=== PATIENT | female | born 1975 | race Caucasian/White ===

== ENCOUNTER → 2017-07-26 | Outpatient (CLI) | payer MEDICAID ==
[~2017-07-26] MED LIST: AMOXIL875 MG PO; AZITHROMYCIN D250 M1 PO; BENTYL20 MG PO; CHILDREN'S ROB118 M1 PO; CIPRODEX 0.3%-7.5 ML OT; DULOXETINE60 MG PO; EFFEXOR XR 75MG75 MG PO; HYDROCODONE-APA1 TA1 PO; KEFLEX500 M1 PO; LAMOTRIGINE100 M1 PO; LAMOTRIGINE150 MG PO; LITHIUM CARB 1150 MG PO; METHOTREXATE 22.5 MG PO; PRAZOSIN HYDROCH1 MG PO; RISPERIDONE1 MG PO; SALMETEROL-F28 PUFF1 IN; ULTRAM 50 MG TA50 MG PO
[2017-07-26 18:50] LABS: LYMPH % 35.3 % (10-50.0)
[2017-07-26 18:55] LABS: HEMOGLOBIN 13.5 g/dL (12.2-16.2)
[2017-07-26 20:09] LABS: BUN 9 mg/dL (7-18)
[2017-07-26 20:12] LABS: GFR (ESTIMATED) 54 ML/MIN (59-)
== END ==
LOC: LAB 17:49
PROVIDERS: Physician Assistant
DX: L40.9 Psoriasis, unspecified (principal)